=== PATIENT | female | born 1990 | race Caucasian/White ===

== ENCOUNTER 2017-07-23 21:45 | Emergency (ER) | payer MEDICAID, OTHER ==
[~2017-07-23] VITALS: Ht 165.1 cm; Wt 77.4 kg
[~2017-07-23 21:45] MED LIST: OXYC-360 PO; Z.0.NO CURRENT MEDS
[2017-07-23 21:50] VITALS: BP 149/88; PULSE 88; RESP 16; TEMP 98.8; O2SAT 96
[2017-07-23] MEDS ORDERED: ASPI1TAB93 PO (22:21)
[2017-07-23] MEDS ORDERED: NORE1TAB57 PO (22:22)
--- NOTE | 2017-07-23 22:39 | PD ---
HPI Chief Complaint: Headache Time Seen by Provider: 22:20 Travel History International Travel<30 days: No Contact w/Intl Traveler<30days: No Traveled to known affect area: No History of Present Illness HPI The patient is a 26-year-old female that come complains of headache and vaginal cyst. The patient had a gradual onset headache beginning about 6 days ago, the headache is global and associated with scotomata and a very slight amount of nausea without vomiting. She states she had migraine headaches when she was in middle school. The headache is now a 2/10. She denies any focal neurologic change. The patient also has a cyst in the vaginal area on the right and wants to be checked for STD. She noted the vaginal cyst about 4 days ago. She denies any fever. The patient also request a CAT scan. PFSH Past Medical History Cancer: No Cardiovascular Problems: No Diabetes: No Patient Takes Glucophage: No Diminished Hearing: Yes Glaucoma: No Headaches: Yes Hepatitis: No Hiatal Hernia: No Hypertension: No Respiratory: No Thyroid Disease: No Tetanus Vaccination: < 5 Years Influenza Vaccination: Yes ?: Unknown LMP: 07/02/17 Ectopic : Yes Past Surgical History Oral Surgery: Yes (TONSILLECTOMY AND WISDOM TEETH REMOVED) Pacemaker: No Other Surgery: Yes (tubal ) Social History Alcohol Use: Yes (occ) Tobacco Use: Yes (1/2 PACK A DAY) Substance Use: Yes (marjuania) Allergies-Medications (Allergen,Severity, Reaction): Coded Allergies: No Known Allergies (Verified Adverse Reaction, Unknown, 07/23/17) Reported Meds & Prescriptions Reported Meds & Active Scripts Active Reported Loestrin 1.5/30 (Norethindrone-Ethinyl Estradiol) 1.5-30 Mg-Mcg Tab 1 Tab PO DAILY Excedrin Extra Strength (Fyyifam-Abrmodtefwvvb-Cwfvnglv) 250 Mg-250 Mg-65 Mg Tab 2 Tab PO Q6HR PRN Review of Systems Except as stated in HPI: all other systems reviewed are Neg Physical Exam Narrative GENERAL: The patient is alert, oriented 3 in slight apparent distress with her headache. Her vital signs show blood pressure 129/88 but are otherwise normal. SKIN: Focused skin assessment warm/dry. No skin rash is noted. HEAD: Atraumatic. Normocephalic. EYES: Pupils equal and round. No scleral icterus. No injection or drainage. ENT: No nasal bleeding or discharge. Mucous membranes pink and moist. NECK: Trachea midline. No JVD. CARDIOVASCULAR: Regular rate and rhythm. No murmur appreciated. RESPIRATORY: No accessory muscle use. Clear to auscultation. Breath sounds equal bilaterally. GASTROINTESTINAL: Abdomen soft, non-tender, nondistended. Hepatic and splenic margins not palpable. MUSCULOSKELETAL: No obvious deformities. No clubbing. No cyanosis. No edema. NEUROLOGICAL: Awake and alert. No obvious cranial nerve deficits. Motor grossly within normal limits. Normal speech. PSYCHIATRIC: Appropriate mood and affect; insight and judgment normal. GENITOURINARY: The right lower labia majora has a 1 cm nontender cystic lesion which is not inflamed. Vaginal vault without blood or drainage. No cervical tenderness is present. Cervical os was closed without drainage. No cervical motion tenderness. Uterus nontender and nonenlarged. Bilateral adnexa nontender without masses. Data Data Last Documented VS Vital Signs Date Time Temp Pulse Resp B/P (MAP) Pulse Ox O2 Delivery O2 Flow Rate FiO2 07/23/17 22:08 18 Room Air 07/23/17 21:50 98.8 88 149/88 (108) 96 Orders Orders Ed Urine Pregnancytest Poc (07/23/17 22:39) Ct Brain W/O Iv Contrast(Rout) (07/23/17 23:09) Gc And Chlamydia Pcr (07/23/17 23:12) Wet Prep Profile (07/23/17 23:12) Urinalysis - C+S If Indicated (07/23/17 23:12) Urine Culture (07/23/17 21:55) Labs Laboratory Tests Test 07/23/17 21:55 07/23/17 23:08 Urine Color YELLOW Urine Turbidity CLEAR Urine pH 5.5 Urine Specific [place] GREATER/EQUAL 1.030 Urine Protein NEG mg/dL Urine Glucose (UA) NEG mg/dL Urine Ketones TRACE mg/dL Urine Occult Blood TRACE Urine Nitrite NEG Urine Bilirubin NEG Urine Urobilinogen 0.2 MG/DL Urine Leukocyte Esterase NEG Urine RBC 4-9 /hpf Urine WBC 20-24 /hpf Urine Squamous Epithelial Cells 0-5 /hpf Urine Mucus MOD /lpf Microscopic Urinalysis Comment CULTURE INDICATED Clue Cells (Wet Prep) NONE SEEN Vaginal Trichomonas (Wet Prep) NONE SEEN Vaginal Yeast (Wet Prep) NONE SEEN MDM Medical Decision Making Medical Screen Exam Complete: Yes Emergency Medical Condition: Yes Medical Record Reviewed: Yes Interpretation(s) The urinalysis shows trace ketones, moderate mucus, 20-24 white cells with 49 red cells and culture is indicated. The CT brain shows no acute intracranial abnormality. There is incidentally noted left sphenoid and posterior ethmoid air cell sinus disease. The wet prep is negative for trichomonas, yeast and clue cells. Differential Diagnosis Migraine headache, intracranial bleed-extremely unlikely, STD, bacterial vaginosis, PID Narrative Course The patient appears to have a migraine headache. She has scotomata. At this time her pain is only a 2/10. She will be given Fioricet for the pain and she should follow-up with her primary care physician. The cyst on the labia majora appears to be an inactive Bartholin's cyst. This is probably resolving as it is not tender or inflamed. She needs to follow-up with her production proofreader about this. Diagnosis Primary Impression: Urinary tract infection Additional Impression: Bartholin's cyst Additional Instructions: Follow-up with a production proofreader about the cyst. It appears you do have a urinary infection and you will be getting an antibiotic which was 1 tablet twice daily for 10 days. Med/Other Pt SpecificInfo: Prescription(s) given Scripts Sulfamethoxazole-Trimethoprim (Bactrim DS) 800-160 Mg Tab 1 TAB PO BID for Infection, #20 TAB 0 Refills Prov: Humberto Tinoco MD 07/24/17 Disposition: 01 DISCHARGE HOME Condition: Stable Humberto Tinoco MD Jul 23, 2017 22:39
[2017-07-23 23:23] LABS: BILIRUBIN, URINE NEG (NEG); BLOOD, URINE TRACE (NEG); GLUCOSE,URINE NEG (NEG); KETONE, URINE TRACE mg/dL (NEG); NITRITE,URINE NEG (NEG); PH, URINE 5.5 (5.0-8.5); URINE COLOR YELLOW (YELLW/STRAW); URINE LEUKOCYTE ESTERASE NEG (NEG)
[2017-07-23 23:28] LABS: MUCUS URINE MOD /lpf (OCC)
[2017-07-23 23:29] LABS: SQUAMOUS EPITHELIAL CELL URINE 0-5 /hpf (0-5)
--- NOTE | 2017-07-23 23:33 | RADRPT ---
EXAM DATE: 07/23/2017 11:28 PM EDT AGE/SEX: 26 years / Female INDICATIONS: Cephalgia x 6 days. CLINICAL DATA: This is the patient's initial encounter. Patient reports that signs and symptoms have been present for 4 - 6 days and indicates a pain score of 2/10. MEDICAL/SURGICAL HISTORY: None. None. RADIATION DOSE: 57.57 CTDI (mGy) COMPARISON: No prior [facility] exams available for comparison. TECHNIQUE: CT of the head without contrast. Using automated exposure control and adjustment of the mA and/or kV according to patient size, radiation dose was kept as low as reasonably achievable to ob tain optimal diagnostic quality images. FINDINGS: Cerebrum: The ventricles are normal for age. No evidence of midline shift, mass lesion, hemorrhage or acute infarction. No extraaxial fluid collections are seen. Posterior Fossa: The cerebellum and brainstem are intact. The 4th ventricle is midline. The cerebe llopontine angle is unremarkable. Extracranial: The visualized portion of the orbits is intact. There is left sphenoid and posterior e thmoid air cell sinus disease. Skull: The calvaria is intact. No evidence of skull fracture. CONCLUSION: 1. No intracranial abnormalities seen. 2. Left sphenoid and posterior ethmoid air cell sinus disease. Electronically signed by: Jj Butts MD 07/23/2017 11:32 PM EDT
[2017-07-24] MEDS ORDERED: BACT800T5 PO (00:36)
[2017-07-24 01:23] VITALS: BP 138/84
== END 2017-07-24 01:01 | disposition home or self-care (01) ==
LOC: PHED 21:45
DX: N39.0 Urinary tract infection, site not specified (principal); N75.0 Cyst of Bartholin's gland; F17.200 Nicotine dependence, unspecified, uncomplicated; F12.90 Cannabis use, unspecified, uncomplicated
CPT/HCPCS: 70450; 81001; 84703; 87086; 87210; 87491; 87591; 99285